=== PATIENT | male | born 1975 | race Caucasian/White ===

== ENCOUNTER 2016-10-06 20:42 | Emergency (ER) | payer OTHER ==
[~2016-10-06] VITALS: Ht 185.4 cm; Wt 104.5 kg
[2016-10-06 21:03] VITALS: BP 156/107; PULSE 96; RESP 16; O2SAT 98
--- NOTE | 2016-10-06 22:45 | ED.REPORT ---
HPI-General Illness Date of Service Oct 06, 2016 ED Provider: Dr. Tsai Pt is a 41 y/o male w/ a hx of heroin abuse presenting to the ED to obtain a Suboxone prescription. The pt uses heroin intravenously. He has been using heroin for 1 year and his last use was 24 hours ago. He believes he is withdrawing with symptoms such as sleeplessness, shakes, anxiety. He has been in a rehab facility ([facility] in [place]) over 1 year ago for 2 years for heroin abuse and left because he was 3 years clean and did not believe he needed extra help. At that time he was using 3 strips of Suboxone per day. He has been attempting to get back into treatment at [facility] but there haven't been any available spots. He also uses methamphetamine occasionally, last use 3 days ago. He denies abscesses, vomiting, hallucinations, fever, chills. Nursing Notes Stated Complaint: SUBOXONE Chief Complaint: Substance Abuse Nursing Notes Reviewed: Yes Allergies: Coded Allergies: Bumble Bee (Verified Allergy, Severe, Anaphylaxis, 10/06/16) Penicillins (Verified Allergy, Severe, Anaphylaxis, 10/06/16) Scheduled Buprenorphine HCl/Naloxone HCl (Suboxone 8 mg-2 mg Sl Film) 1 Each Film 1 EACH SL BID General Time Seen by MD: 22:44 Chief Complaint Other (Suboxone) Hx Obtained From: Patient Arrived By: Walk-in Sudden in Onset?: No Onset Occurred: 1 day ago Symptom Duration: Since onset Severity: Current: No pain currently Severity: Maximum: No pain Recent Healthcare: Previous diagnosis Similar Sx Previous: Yes Past Medical History Past Medical History Heroin abuse - multiple attempts at rehab Past Surgical History None reported Smoking History Unknown if Ever Smoker Social History Heroin Drug Use: IV drugs, Meth Ambulatory Status Independent Review of Systems +sleeplessness Full Review of Systems Constitutional: Denies: Chills, Fever GI: Denies: Nausea, Vomiting Skin: Denies Rash Neurologic: Reports: Shaking, Denies: Seizure Psychiatric: Reports: Anxiety, Denies: Hallucinations, auditory, Hallucinations, visual Complete sys rev & neg: except as marked. Physical Exam Vital Signs Vital Signs Date Time Temp Pulse Resp B/P Pulse Ox O2 Delivery O2 Flow Rate FiO2 10/07/16 00:56 36.5 101 18 148/101 98 Room Air 10/06/16 21:03 36.2 96 16 156/107 98 Room Air Initial VS: Reviewed, Vital signs abnormal Head / Eyes: Atraumatic, Normocephalic ENT: Conjunctiva normal, No scleral icterus Neck: Supple, Full range of motion Respiratory: No respiratory distress Abdomen / GI: No distention Neurologic: Alert, Oriented, Nonfocal General/Constitutional: Awake, Alert, Cooperative, Not toxic appearing Behavior: Positive: Anxious Cardiovascular: Regular rhythm, Heart sounds NL, No gallop, No murmurs, No rubs , Cap refill not delayed, Peripheral circulation NL Heart Rate / Rhythm: Positive: Tachycardia Skin: Atraumatic, Warm, Dry Color / Condition: Positive: Diaphoresis present No abscesses Track todd Abnormal Mood/Affect: Positive: Anxious Restless Re-Eval/Medical Decision Med Decision/Clinical Course 41-year-old with [facility] heroin use. He is having trouble getting into MAT in [place]. He is currently going to [facility] for counseling but no Suboxone treatment as yet available. He presents here because he heard that [facility] does have available MAT slots. He has not used in almost 24 hours and is in sufficient withdrawal to prevent precipitated withdrawal, so was given buprenorphine 8 mg by mouth with improvement. He was given a prescription for morphine/naloxone 8/2 daily, #7. He was scheduled to see a provider at [facility] as soon as possible. Time of Eval: 22:52 Re-Evaluation/Progress Note: Pt rechecked. Informed pt of plan for treatment. Pt understands and agrees with plan for treatment. F/U instructions and RTER warnings given. All questions addressed. Counseled Regarding: Diagnosis, Need for follow-up, When/why to return to ED Discharge & Departure Primary Impression: Opioid dependence with withdrawal Disposition: Home Discharge Condition All VS Reviewed: Yes Condition: Stable Patient Instructions: Buprenorphine (Injection) Additional Instructions: Buprenorphine/naloxone 8/2 film or tab, one sublingual twice a day, #14 prescription written. Call [facility] or [facility] for ongoing Suboxone treatment. Referrals: OTHER,PHYSICIAN (PCP) Scribe Attestation Portions of this note were transcribed by Bladimir Burciaga. I, Dr. Tsai personally performed the history, physical exam and medical decision-making; I reviewed and confirmed the accuracy of the information in the transcribed note. Signed by Kim Guerrero, 10/06/16 - 2315 Rusty Tsai MD Oct 06, 2016 22:45 BLADIMIR BURCIAGA Oct 06, 2016 22:54
[2016-10-06] MEDS ORDERED: Buprenorphine 2 mg SL Tablet SL ONE (23:10)
[2016-10-06] MEDS ORDERED: BUPR1FIL3 SL (23:43)
[2016-10-07 00:56] VITALS: BP 148/101; PULSE 101; RESP 18; O2SAT 98
== END 2016-10-07 00:34 | disposition home or self-care (01) ==
LOC: SED 20:42
DX: F11.23 Opioid dependence with withdrawal (principal); F15.10 Other stimulant abuse, uncomplicated; Z88.0 Allergy status to penicillin

== ENCOUNTER 2016-10-13 20:42 | Emergency (ER) | payer OTHER ==
[~2016-10-13] VITALS: Ht 185.4 cm; Wt 104.0 kg
[~2016-10-13 20:42] MED LIST: BUPR1FIL3 SL
[2016-10-13 21:19] VITALS: BP 136/97; PULSE 93; RESP 20; O2SAT 98
--- NOTE | 2016-10-13 22:04 | ED.REPORT ---
HPI-General Illness Date of Service Oct 13, 2016 ED Provider: Rusty Tsai MD Patient is a 41 year old male with a history of IV heroin abuse who presents to the ED requesting a refill of Suboxone prescription after he ran out today. Patient was seen in the ED on 10/06/2016 due to heroin withdrawal and requested to start Suboxone. Patient has been taking his Suboxone since that time and was able to take a dose earlier today. He last used IV heroin prior to that visit. Patient was having difficulty finding a Suboxone provider in [place], but he now has an appointment at [facility] on October 19. The patient has been seen at [facility] in [place] for the past 2 months for mental health counseling services. Patient last used methamphetamine 2 days ago. Patient denies having any medical complaints at this time. Nursing Notes Stated Complaint: MEDICATION REQUEST Chief Complaint: Substance Abuse Nursing Notes Reviewed: Yes Allergies: Coded Allergies: Bumble Bee (Verified Allergy, Severe, Anaphylaxis, 10/06/16) Penicillins (Verified Allergy, Severe, Anaphylaxis, 10/06/16) Scheduled Buprenorphine HCl/Naloxone HCl (Suboxone 8 mg-2 mg Sl Film) 1 Each Film 1 EACH SL BID Buprenorphine HCl/Naloxone HCl (Suboxone 8 mg-2 mg Sl Film) 1 Each Film 1 EACH SL BID General Time Seen by MD: 21:57 Chief Complaint Medication refill Hx Obtained From: Patient Arrived By: Walk-in Sudden in Onset?: No Onset Occurred: Just prior to arrival (ran out of medication today) Symptom Duration: Since onset Severity: Current: No pain currently Severity: Maximum: No pain Recent Healthcare: No recent doctor visit, No recent hospitalization Similar Sx Previous: No Past Medical History Past Medical History Heroin abuse - multiple attempts at rehab Past Surgical History None reported Smoking History Unknown if Ever Smoker Social History Heroin Lives in [place] Drug Use: IV drugs, Meth Other Social History: Poor social support, From out of town Ambulatory Status Independent Review of Systems no medical complaints or symptoms of withdrawal Full Review of Systems Constitutional: Denies: Chills, Fever GI: Denies: Diarrhea, Vomiting Complete sys rev & neg: except as marked. Physical Exam Vital Signs Vital Signs Date Time Temp Pulse Resp B/P Pulse Ox O2 Delivery O2 Flow Rate FiO2 10/13/16 21:19 36.1 93 20 136/97 98 Room Air Initial VS: Reviewed, Vital signs abnormal Extremities: Vascular intact, Neuro intact Skin: Warm, Dry, No cyanosis Neurologic: Alert, Oriented, Nonfocal Psychiatric: Mood/affect normal, Behavior normal, Normal thought content General/Constitutional: Awake, Alert, No acute distress hyperactive with extraneous movements Head / Eyes: Normocephalic, PERRL ENT: Airway patent Neck: Supple, Full range of motion Respiratory / Chest: No respiratory distress, No stridor Cardiovascular: Heart rate NL, Regular rhythm Psychiatric: No hallucinations (does not appear to be reacting to internal stimuli) Abnormal Mood/Affect: Positive: Pressured speech Abnormal Thinking / Perception: Positive: Flight of ideas hyperactive with extraneous movements Re-Eval/Medical Decision Med Decision/Clinical Course 41-year-old male who was seen by me last week for opioid use disorder. He was placed on Suboxone and given directions to follow up with a Suboxone maintenance clinic. He was able to schedule an appointment with me at [facility] for Monday, 10 days hence. I confirmed this with the mobile scheduling up from the clinic. He was given sufficient medication to last until then. Source of Hx: Old records Time of Eval: 22:37 Patient Status: Condition improved Re-Evaluation/Progress Note: Patient was confirmed to have an appointment at [facility] on October 19. He will be discharged on Suboxone to use until that appointment. Patient understands and agrees with the plan to be discharged. Discharge instructions and follow-up discussed. All questions were addressed. Return to the ED warnings given. Counseled Regarding: Diagnosis, Need for follow-up, When/why to return to ED Discharge & Departure Primary Impression: Opioid dependence on agonist therapy Additional Impression: Medication refill Disposition: Home Discharge Condition All VS Reviewed: Yes Condition: Stable Patient Instructions: Buprenorphine/Naloxone (By mouth) Additional Instructions: Continue buprenorphine/naloxone 04/19, one twice daily. See me as planned Monday at the [facility]. Referrals: OTHER,PHYSICIAN (PCP) [facility] Scribsarah Attestation Portions of this note were transcribed by Beatriz Aguiar. I, Dr. Tsai personally performed the history, physical exam and medical decision-making; I reviewed and confirmed the accuracy of the information in the transcribed note. Signed by: Kim Dial, 10/13/2016 [id number] copies to: OTHER,PHYSICIAN Rusty Tsai MD Oct 13, 2016 22:04 Beatriz Aguiar Oct 13, 2016 22:40
[2016-10-13] MEDS ORDERED: BUPR1FIL3 SL (22:58)
== END 2016-10-13 23:04 | disposition home or self-care (01) ==
LOC: SED 20:42
DX: F11.20 Opioid dependence, uncomplicated (principal); Z76.0 Encounter for issue of repeat prescription; Z88.0 Allergy status to penicillin

== ENCOUNTER 2017-05-04 21:41 | Emergency (ER) | payer OTHER ==
[~2017-05-04] VITALS: Ht 182.9 cm; Wt 104.5 kg
[2017-05-04 21:47] VITALS: BP 159/109; PULSE 93; RESP 12; O2SAT 99
--- NOTE | 2017-05-04 22:43 | ED.REPORT ---
HPI-General Illness Date of Service May 04, 2017 ED Provider: Rusty Tsai MD The patient is a 41 year old male with a history of IV heroin abuse, HTN and hyperlipidemia who presents to the ED requesting to restart Suboxone. He attended my outpatient Suboxone clinic. He last took Suboxone 6 weeks ago and last used heroin yesterday afternoon. Nursing Notes Stated Complaint: SUBOXONE Chief Complaint: Substance Abuse Nursing Notes Reviewed: Yes Allergies: Coded Allergies: Bumble Bee (Verified Allergy, Severe, Anaphylaxis, 05/04/17) Penicillins (Verified Allergy, Severe, Anaphylaxis, 05/04/17) Scheduled Buprenorphine HCl/Naloxone HCl (Suboxone 8 mg-2 mg Sl Film) 1 Each Film 1 EACH SL BID Buprenorphine HCl/Naloxone HCl (Suboxone 8 mg-2 mg Sl Film) 1 Each Film 1 EACH SL BID Buprenorphine/Naloxone 8-2 mg (Buprenorphine/Naloxone 8-2 mg) 1 Each Tab.subl 2 TABLET SL DAILY General Time Seen by MD: 22:06 Chief Complaint Other (requesting Suboxone) Hx Obtained From: Patient Arrived By: Walk-in Severity: Current: No pain currently Severity: Maximum: No pain Recent Healthcare: No recent doctor visit Similar Sx Previous: Yes Past Medical History Past Medical History Heroin abuse - multiple attempts at rehab Past Surgical History None reported Smoking History Unknown if Ever Smoker Social History Heroin Lives in [place] Drug Use: IV drugs, Meth Other Social History: Poor social support, From out of town Ambulatory Status Independent Review of Systems Reports: requesting Suboxone. Asymptomatic. Complete sys rev & neg: except as marked. Physical Exam Vital Signs Vital Signs Date Time Temp Pulse Resp B/P Pulse Ox O2 Delivery O2 Flow Rate FiO2 05/04/17 21:47 36.7 93 12 159/109 99 Room Air Initial VS: Reviewed Head / Eyes: Atraumatic, Normocephalic Neck: Supple, Non-tender, Full range of motion Respiratory: No respiratory distress Cardiovascular: Regular rate & rhythm Abdomen / GI: No guarding, No distention Extremities: Vascular intact, Neuro intact, No swelling, No tenderness Skin: Warm, Dry, No cyanosis Neurologic: Alert, Oriented, Nonfocal General/Constitutional: Awake, Alert, No acute distress, Well appearing, Cooperative Skin: Atraumatic, Color NL, No rash, Warm, Dry, Intact No obvious abscesses. Re-Eval/Medical Decision Med Decision/Clinical Course 42-year-old male well-known to me who recently relapsed on heroin. He was restarted on Suboxone and will follow up with me at [facility]. Time of Eval: 22:10 Re-Evaluation/Progress Note: Rechecked pt. Discussed diagnosis and plan to discharge. Pt understands and agrees with the plan. F/U instruction and RTER warning given. All questions addressed. Counseled Regarding: Diagnosis, Need for follow-up, When/why to return to ED Discharge & Departure Primary Impression: Opioid dependence with withdrawal Disposition: Home Discharge Condition All VS Reviewed: Yes Condition: Stable Patient Instructions: Buprenorphine (Into the mouth) Additional Instructions: Contact the priority access line for [facility] at [phone] to schedule the next available appointment. Restart Suboxone 8/2 tablet or film, 16 mg daily, #10 prescribed. Do not use meth or opiates. Referrals: NOPCP (PCP) Scribe Attestation Portions of this note were transcribed by Taylor Wade. I,, personally performed the history,physical exam and medical decision-making;I reviewed and confirmed the accuracy of the information in the transcribed note. Signed by Kim Mitchell. 05/04/17 Rusty Tsai MD May 04, 2017 22:43 Taylor Wade May 04, 2017 23:21
[2017-05-04] MEDS ORDERED: Buprenorphine 2 mg SL Tablet SL ONE (22:45)
[2017-05-04] MEDS ORDERED: BUPR1TAB36 SL (23:05)
== END 2017-05-04 23:32 | disposition home or self-care (01) ==
LOC: SED 21:41
DX: F11.23 Opioid dependence with withdrawal (principal); Z88.0 Allergy status to penicillin; Z91.030 Bee allergy status